=== PATIENT | male | born 1965 | race Caucasian/White ===

== ENCOUNTER 2017-10-30 08:55 | Emergency (ER) | payer OTHER ==
[~2017-10-30] VITALS: Ht 175.3 cm; Wt 113.4 kg
[~2017-10-30 08:55] MED LIST: ASA81 MG PO; CELEBREX 200MG; COZAAR25 MG PO; CRESTOR; DALMANE30 MG PO; GLUCOPHAGE; LECITHIN1200 MG PO; ZOLOF
[2017-10-30] MEDS ORDERED: WELLBUTRIN SR150 MG (09:15)
[2017-10-30] MEDS ORDERED: AVAPRO75 MG (09:15)
[2017-10-30] MEDS ORDERED: TOPROL XL50 M1 (09:15)
[2017-10-30] MEDS ORDERED: LIPITOR20 MG (09:15)
== END 2017-10-30 12:30 | disposition home or self-care (01) ==
LOC: ER 08:55
DX: M1A.9XX0 Chronic gout, unspecified, without tophus (tophi) (principal)

== ENCOUNTER 2020-11-01 14:48 | Outpatient (CLI) | payer OTHER ==
[~2020-11-01 14:48] MED LIST changes: +AVAPRO75 MG; +LIPITOR20 MG; +TOPROL XL50 M1; +WELLBUTRIN SR150 MG
== END 2020-11-01 15:02 | disposition home or self-care (01) ==
LOC: RAD 14:48
PROVIDERS: ATTEND Orthopaedic Surgery
DX: M25.561 Pain in right knee (principal); M25.562 Pain in left knee